=== PATIENT | male | born 1945 | race Two or more races ===

== ENCOUNTER 2017-01-22 11:39 | Day surgery (SDC) | payer OTHER ==
[2017-01-22] VITALS (11 sets, daily range): BP systolic 133–170; BP diastolic 73–107; PULSE 52–88; RESP 11–22; Ht 182.9 cm; Wt 70.0 kg
[~2017-01-22] VITALS: Ht 182.9 cm; Wt 70.0 kg
[~2017-01-22 11:39] MED LIST: CEFAZOLIN 2 GM/50 ML (PMX) 50 ML IVPB SCH; LIDOCAINE 2% (SDV) 5 ML INJ ONE; SOD CHLORIDE 0.9% 1,000 ML IV SCH
[2017-01-22] MEDS ORDERED: CAND8TAB PO (13:06)
[2017-01-22] MEDS ORDERED: ATOR20TA38 PO (13:08)
[2017-01-22] MEDS ORDERED: ASPI325T4 PO (13:08)
[2017-01-22] MEDS ORDERED: CALC0.002 MC (13:08)
[2017-01-22] MEDS ORDERED: PROPOFOL 40 ML ONE (15:41)
[2017-01-22] MEDS ORDERED: POLYMYXIN/BACITRACIN 1L IRRIG ONE (15:43)
[2017-01-22] MEDS ORDERED: BUPIVACAINE 0.25% (MPF) 30 ML INJ ONE (15:43)
[2017-01-22] MEDS ORDERED: FENTAnyl 50 MCG/ML VIAL ONE ×3 (15:47→16:51)
[2017-01-22] MEDS ORDERED: ROCURONIUM 50 MG INJ ONE (16:04)
[2017-01-22] MEDS ORDERED: CEFAZOLIN 1 GM INJ ONE (16:04)
[2017-01-22] MEDS ORDERED: KETOROLAC 30 MG INJ ONE (16:22)
[2017-01-22] MEDS ORDERED: hydrALAzine 20 MG INJ ONE (16:51)
--- NOTE | 2017-01-22 16:53 | OPR ---
DATE OF OPERATION: 01/22/2017 INDICATION: This is a 71-year-old male with a left inguinal hernia. He requests surgical repair. The risks, alternatives, benefits, and personnel were discussed with the patient. The patient expre ssed understanding and consented to the operation. PREOPERATIVE DIAGNOSIS: Left inguinal hernia. POSTOPERATIVE DIAGNOSIS: Left inguinal hernia. OPERATION: Open left inguinal hernia repair with a medium size Ultrapro hernia system mesh. SURGEON: Amado Ulloa MD SPECIMENS: None. COMPLICATIONS: None. ANESTHESIA: General. DESCRIPTION OF PROCEDURE: The patient was taken to the OR, prepped and draped in the usual sterile fashion. A surgical timeout was performed. IV antibiotics were given. A left inguinal oblique inc ision was made with a 10 blade. Dissection cautery was carried down to the external oblique fascia, which was opened with a 15 blade. This incision was extended medial inferiorly and lateral superio rly with the Metzenbaum scissors. The cord structures were encircled with a [place] drain. The ind irect hernia was identified and reduced. This was buttressed with the disk portion of the UltraPro hernia system mesh, which was secured in place with a running 0 Prolene from the pubic tubercle paul g the shelving edge of the inguinal ligament and superiorly to the internal oblique with interrupted 3-0 Vicryl. Onlay mesh was secured in a similar fashion with a running 0 Prolene from the pubic tu bercle along the shelving edge of the inguinal ligament. Straps were created and reapproximated wit h interrupted 0 Prolene to recreate the inguinal ring. Onlay mesh was secured to the internal obliq ue with interrupted 3-0 Vicryl. The external oblique fascia was closed with a running 3-0 Vicryl. Gulshan's was closed with interrupted 3-0 Vicryl. The skin was closed using skin nithya. Local ane sthesia was injected. Dry dressings were applied. Dictated By: AMADO ULLOA MD SB/NTS Conf#: [id number] DID#: [id number]
[2017-01-22] MEDS: FENTAnyl 50 MCG/ML VIAL IV PRN ×4 (16:54→17:18)
[2017-01-22] MEDS ORDERED: LABETALOL HCL 20MG INJ IV PRN (17:00)
[2017-01-22] MEDS ORDERED: EPHEDrine SULFATE 50 MG/5 ML SYG IV PRN (17:00)
[2017-01-22] MEDS ORDERED: HYDROCODONE/APAP (5/325) TAB PO ONE (17:00)
[2017-01-22] MEDS ORDERED: hydrALAzine 20 MG INJ IV PRN (17:00)
[2017-01-22] MEDS ORDERED: FENTAnyl 50 MCG/ML VIAL IV PRN ×2 (17:00)
[2017-01-22] MEDS ORDERED: MEPERIDINE 25 MG INJ IV PRN (17:00)
== END 2017-01-22 19:00 | disposition home or self-care (01) ==
LOC: SDS 11:39
PROVIDERS: ATTEND Surgery
DX: K40.90 Unilateral inguinal hernia, without obstruction or gangrene, not specified as recurrent (principal); I10 Essential (primary) hypertension
CPT/HCPCS: 49505; C1781; J0690; J1885; J2175; J3010; J0360